=== PATIENT | male | born 1955 | race Caucasian/White ===

== ENCOUNTER 2019-10-19 04:48 | Inpatient (IN) | payer MEDICARE ==
[~2019-10-19] VITALS: Ht 170.1 cm; Wt 90.7 kg
[2019-10-19] MEDS ORDERED: GLIMEPIRIDE4 M1 PO (05:18)
[2019-10-19] MEDS ORDERED: IBU800 M1 PO (05:24)
[2019-10-19] MEDS ORDERED: POTASSIUM CHLO20 ME4 PO (05:28)
[2019-10-19] MEDS ORDERED: DULOXETINE HCL60 MG PO (05:30)
[2019-10-19] MEDS ORDERED: LISINOPRIL10 M1 PO (05:31)
[2019-10-19] MEDS ORDERED: FUROSEMIDE40 MG PO (05:33)
[2019-10-19] MEDS ORDERED: DONEPEZIL HCL10 MG PO (05:34)
[2019-10-19] MEDS ORDERED: NEURONTIN300 MG PO (05:35)
[2019-10-19] MEDS ORDERED: NEXIUM40 MG PO (05:36)
[2019-10-19] MEDS ORDERED: MEMANTINE HCL5 MG PO (05:37)
[2019-10-19] MEDS ORDERED: SINEMET 10-1001 EACH PO (05:39)
[2019-10-19] MEDS ORDERED: ASPIRIN ADULT L81 M2 PO (05:40)
[2019-10-19] MEDS ORDERED: RISPERDAL1 M1 PO (05:42)
[2019-10-19] MEDS ORDERED: MAGNESIUM OXID400 MG PO (05:44)
[2019-10-19] MEDS ORDERED: LORATADINE-D 21 EACH PO (05:45)
--- NOTE | 2019-10-19 07:14 | NUR ---
MANDYYE LEONARD V a 64 year old M admitted via stretcher from the [facility] as a voluntary admission. [place] [id number]. ALLERGIES: OPIOIDS, NUTS. Vital signs are: 97.5-100-18 146/88. The client signed the following forms with stated understanding: Authorization For The Release of Medical Information, Clothing List, Consent to Voluntary Admission and Hospitalization, Consent and Release Forms/Receipt of Rights, Acknowledgement of Advance Directive Information, Behavioral Health Consent Form, and Informed Consent of Medications. Admitted under the services of Dr. TIMOTHY HOOD,[facility]. A search was conducted and hazardous articles were removed. Client was oriented to the unit. ADRIANA ANG
[2019-10-19 07:22] VITALS: BP 146/88
--- NOTE | 2019-10-19 07:54 | NUR ---
Dr. Joshi on floor, notified of new admission. Stated to put under Dr. Bear for medical management
[2019-10-19 08:00] VITALS: BP 146/88
--- NOTE | 2019-10-19 08:15 | NUR ---
Treatment Plan meeting was held via telephone with Dr. aVlencia, RUMA Larson, RN, AT, PERSONNEL INTERVIEWER-S and Orthopedic Physician Assistant. Plan for discharge next week. Will reach out to family today to discuss discharge planning.
[2019-10-19 09:07] VITALS: BP 146/88
--- NOTE | 2019-10-19 12:05 | NUR ---
Dr. Ortega notified of patient being a diabetic, BS checked at 1130 of 203, pt is on a PO diabetic medication, but no insulin, and on a regular diet. Dr. Ortega stated to not change anything at ths time.
--- NOTE | 2019-10-19 14:14 | NUR ---
Shift chart check completed.
--- NOTE | 2019-10-19 14:49 | NUR ---
Lengthy family meeting held via phone with pt's Lula. Per Lula, pt is unable to return home due to safety concerns. Lula also stated that she is pt's DPOAHC. Pt was current with [facility] until [facility] admission. The hospice agency does have a copy of the DPOAHC. Lula explained that pt has a lengthy psych history with previous suicidal ideations. Pt has pill packs for his home meds. Lula stated that she did not realize that pt was without his Risperdal for approximately 2 weeks. Pt began to voice paranoid delusions about and friends. Yesterday, pt woke up and immediately went to the drawer where he keeps a gun. He grabbed the gun and pointed it toward himself and told Lula that he was going to kill himself. Lula then wrestled with pt and was able to get the gun. Lula stated that she is done with pt and that she will no longer be his caregiver. Discussed discharge options. Educated Lula about options. Will request PT/OT to further determine discharge needs. Lula also confirmed that all firearms were removed from the house. Lula was tearful throughout conversation. Empathized and provided support to her.
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
--- NOTE | 2019-10-19 18:21 | NUR ---
Found a paper that missed getting signed with patient during admission. Went back to patient room to remind patient what we had discussed and it just needed signed. Patient refused to sign paper stating "Why would them doctors put three of my meds on hold. And I did not get my morning meds". Informed patient that because he was a new admission, the hospitalist still needed to review his meds. It is way to late to get missed medications and he gets night meds in a couple hours. Patient turned away and refused to answer staff.
[2019-10-19 19:48] VITALS: BP 119/79
--- NOTE | 2019-10-19 21:20 | NUR ---
24 HR chart check completed.
--- NOTE | 2019-10-19 22:00 | NUR ---
P-ISOLATIVE, IRRITABLE I-ENCOURAGE VENTILATION OF FEELINGS, ADMINISTER MEDS, MONITOR SLEEP R-PT HAS REMAINED IN HIS ROOM IN BED SLEEPING. DURING VERBAL INTERVENTION, HE WAS IRRITABLE ABOUT HIS MEDICATIONS. ALERT TO PERSON, IN A HOSPITAL, MONTH & YEAR. DENIES SUICIDAL FEELINGS. DID NOT EAT SNACK. TOOK MEDICATIONS WHOLE & STATED, "IT'S ABOUT TIME". P-CONTINUE TO MONITOR
--- NOTE | 2019-10-20 05:17 | NUR ---
PT HAS SLEPT QUIETLY PAST 1999
[2019-10-20 06:19] LABS: BASO # 0.1 10*3/uL (0.0-0.1); BASO % 1.1 % (0.0-1.0); EOS % 0.6 % (1.0-4.0); HEMATOCRIT 42.2 % (42.0-52.0); LYMPH # 2.4 10*3/uL (1.3-4.4); LYMPH % 36.9 % (27.0-41.0); MEAN CELL VOLUME 95.5 fl (80.0-94.0); MEAN CORPUSCULAR HGB 32.1 pg (27.0-31.0); MEAN CORPUSCULAR HGB CONC 33.6 g/dl (33.0-37.0); MEAN PLATELET VOLUME 10.1 fl (9.6-12.3); MONO # 0.6 10*3/uL (0.1-1.0); MONO % 9.4 % (3.0-9.0); NEUT # 3.3 10*3/uL (2.3-7.9); NEUT % 51.5 % (47.0-73.0); PLATELET COUNT AUTOMATED 223 10*3/uL (130-400); RED BLOOD COUNT 4.42 10*6/uL (4.50-5.90); RED CELL DISTRI WIDTH 12.9 % (0-14.5); WHITE BLOOD COUNT 6.5 10*3/uL (4.8-10.8)
[2019-10-20 06:44] LABS: ALBUMIN 3.3 gm/dl (3.1-4.5); ALKALINE PHOSPHATASE 81 U/L (45-117); BUN 12 mg/dl (7-24); CHLORIDE 107 mmol/L (98-107); CHOLESTEROL 171 mg/dL (<200); CREATININE 0.89 mg/dL (0.70-1.30); HDL CHOLESTEROL 48 mg/dl (40-60); LDL CHOLESTEROL 92 mg/dL (9-159); POTASSIUM 3.6 mmol/L (3.5-5.1); SGOT/AST 38 IU/L (3-35); SGPT/ALT 18 U/L (12-78); SODIUM 142 mmol/L (136-145); TOTAL PROTEIN 6.7 gm/dL (6.4-8.2); TRIGLYCERIDES 157 mg/dl (<150); VLDL CHOLESTEROL 31 mg/dL (6-40)
[2019-10-20 06:50] LABS: THYROID STIM HORMONE (HS) 0.485 uIU/ml (0.358-4.75)
[2019-10-20 07:56] VITALS: BP 111/72
--- NOTE | 2019-10-20 08:00 | NUR ---
Treatment Plan meeting was held via telephone with Dr. Valencia, RN, JOB FOREMAN-S and Fuel Technician. Plan for discharge Next week. Dr. Valencia has ordered Competency Evaluation. Discharge Plans unclear at this time. Pt. lives at home with who reports that patient is unable to return home.
[2019-10-20 08:03] LABS: VITAMIN D, 25-HYDROXY 11.8 ng/mL (30-100)
--- NOTE | 2019-10-20 10:33 | NUR ---
DR. DACOSTA NOTIFIEO OF COMPETENCY EVAL.
--- NOTE | 2019-10-20 14:38 | NUR ---
Spoke with pt's Lula who states that she has been speaking to pt on the phone. She has reconsidered and wants pt to return home as long as [facility] team feels pt is appropriate to do so. Explained to Lula that pt was being tested for competency and educated Lula about this further.
--- NOTE | 2019-10-20 17:00 | NUR ---
CALL LIGHT SOUNDING FROM ANOTHER ROOM, LOOKED OVER IN ROOM. PATIENT OBSERVED LYING ON FLOOR, LAYING ON LEFT SIDE. PATIENT STATED "I HAD TO GO TO THE BATHROOM, PAST OUT BEFORE I KNEW I WAS ON THE FLOOR. PATIENT STATED I HIT MY HEAD. VITALS: T=96.8, 18, P 111, BP 79/66, MANUAL BP 68/50, 92% RA; NEURO EYES REACTED TO LIGHT, STRONG HAND GRASP, ABLE TO MOVE ALL EXTREMITIES. PATIENT ADMITS TO BEING DIZZY. DR. RUSSELL NOTIFIED. NEW ORDERS FOR HEAD CT STAT. RECHECK BP BEFORE GOING TO RADIOLOGY.
--- NOTE | 2019-10-20 17:15 | NUR ---
DR. RUSSELL ON UNIT TO ASSESS PATIENT. BLOOD PRESSURE RECHECK 80/50. MEDICATIONS REVIEW. VERBAL ORDER TO HOLD POTASSIUM, LASIX AND LISINOPRIL. DR. AGUIRRE NOTIFIED. VERBAL ORDER FOR ORTHOSTATIC BP Q SHIFT X 3 DAYS.
--- NOTE | 2019-10-20 19:09 | NUR ---
BP 76/46 MANUALLY BY RN, DR. BETTENCOURT MADE AWARE. STATES TO CONTINUE TO KEEP PT IN GROUP ROOM AND MONITOR FOR S/S OF FAINTNESS AND DIZZINESS. ALSO STATES TO ENCOURAGE MORE FLUID INTAKE. RECOMMENDATIONS COMMUNICATED TO ADMINISTRATIVE SPECIALIST STAFF.
[2019-10-20 20:00] VITALS: BP 82/64
--- NOTE | 2019-10-20 21:26 | NUR ---
24 HR chart check completed.
--- NOTE | 2019-10-20 22:34 | NUR ---
P-ISOLATIVE, IRRITABLE I-ENCOURAGE VENTILATION OF FEELINGS, ADMINISTER MEDS, MONITOR SLEEP R-PT SAT IN THE DINING ROOM QUIETLY. DEPRESSED & IRRITABLE WITH SARCASTIC REMARKS & COMPLAINS ABOUT HIS MEDICATIONS, NOT GETTING ANY FOOD & NOT BEING ABLE TO LAY DOWN DESPITE REORIENTATION. PT DENIES ANY DIZZINESS. STATED, "I FEEL FINE. I JUST WANT TO GO LAY DOWN". B/P 84/64 & PULSE 88. REFUSED ORTHOSTATICS. ALERT TO PERSON, MONTH & YEAR. SHORT TERM MEMORY DEFICITS NOTED. DENIES SUICIDAL FEELINGS. ATE SNACK. TOOK MEDICATIONS WHOLE. FANAPT HELD A NURSING MEASURE DUE TO LOW B/P. PT IS TAKING FLUIDS WELLL & STATED, "IF I DRINK ANY MORE, I'M GONNA SHIT ALL OVER THE PLACE". P-CONTINUE TO MONITOR
--- NOTE | 2019-10-21 04:42 | NUR ---
URINE OBTAINED & SENT TO LAB
[2019-10-21 04:52] LABS: BILIRUBIN NEGATIVE (NEGATIVE); BLOOD NEGATIVE (NEGATIVE); CLARITY CLEAR (CLEAR); COLOR YELLOW (YELLOW); GLUCOSE NEGATIVE (NEGATIVE); KETONE NEGATIVE (NEGATIVE); LEUKO ESTERASE NEGATIVE (NEGATIVE); NITRITE NEGATIVE (NEGATIVE); SPECIFIC GRAVITY 1.015 (1.005-1.030); UROBILINOGEN 0.2 E.U./dl (0.2-1.0)
[2019-10-21 04:53] LABS: FINE GRANULAR CAST 16-20; HYALINE CAST 16-20; WBC 0-2 wbc/hpf (0-5)
--- NOTE | 2019-10-21 05:55 | NUR ---
PT HAS SLEPT PAST 2144 WITH INTERMITTENTLY AWAKENINGS SLEEPING APPROXIMATELY 4-5 HOURS TOTAL.
[2019-10-21 08:00] VITALS: BP 133/60
--- NOTE | 2019-10-21 08:10 | NUR ---
Patient in room resting quietly. Respirations easy and regular. Vital signs stable. No overt distress. Telehealth with Marsha Pineda CNP. Updates provided. DUSTIN ROBERSON
--- NOTE | 2019-10-21 08:15 | NUR ---
Treatment Plan meeting was held via telephone with Dr. Valencia, RUMA Larson, JANETTE, STONE SAWYER-S and Corner Cutter. Plan for discharge next week. Discharge Plan is unclear at this time. Pt. is POA and would like for Pt. to return home.
--- NOTE | 2019-10-21 08:19 | NUR ---
PT NONCOMPLIANT WITH ORTHOSTATIC BP'S AT THIS TIME.
--- NOTE | 2019-10-21 10:49 | NUR ---
AM GROUP PT WAS PRESENT FOR GROUP THERAPY, MOVIE, COLORING, AND LOW STIMULATION; PT SAT QUIETLY AND WATCHED MOVIE.
--- NOTE | 2019-10-21 14:58 | NUR ---
Attempted to engage pt in conversation. Pt would only answer with short responses. It is uncertain if pt could hear this senior grant writer. Pt was making poor eye contact during brief interaction with this STORE RECEIVER-S.
--- NOTE | 2019-10-21 17:57 | NUR ---
SPOKE WITH PT'S VIA TELEPHONE TODAY WHO STATES THAT PATIENT OFTEN HAS DIFFICULTY EXPRESSING HIS NEEDS. PATIENT HAS BEEN MUCH MORE COMMUNICATIVE TODAY, DISCUSSING HIS NEUROPATHY PAIN IN HIS LEGS AND HOW THE IBUPROFEN AND NEURONTIN WORK PRETTY WELL TO MANAGE HIS PAIN. PT STATES HE HAS TRIED OTHER MEDICATIONS SUCH VICODIN WHICH HAS NOT WORKED WELL IN THE PAST. PT EDUCATED ON MEDICATIONS AND ENCOURAGED TO EXPRESS ANY NEEDS TO STAFF.
--- NOTE | 2019-10-21 19:45 | NUR ---
24 HR chart check completed.
[2019-10-21 19:59] VITALS: BP 126/81
--- NOTE | 2019-10-21 20:35 | NUR ---
PT REQUESTED & MEDICATED WITH IBUPROFEN 800 MG PO @ 2029 FOR C/O BILATERAL LEG & FEET PAIN RELATED TO HIS NEUROPATHY
--- NOTE | 2019-10-21 21:04 | NUR ---
P-ISOLATIVE I-ENCOURAGE VENTILATION OF FEELINGS, ADMINISTER MEDS, MONITOR SLEEP R-PT SAT IN THE DINING ROOM QUIETLY & KEPT TO HIMSELF. DEPRESSED MOOD. MORE APPROPRIATE AFFECT WHEN TALKING TO STAFF. STILL HAS UNDERLYING IRRITABLITY. CONTINUES TO STATE THAT HE FEELS FINE. I JUST WANT TO GO LAY DOWN". B/P 126/81 PULSE 90. REFUSED ORTHOSTATICS. ALERT TO PERSON, MONTH & YEAR. DENIES SUICIDAL FEELINGS. ATE SNACK. TOOK MEDICATIONS WHOLE. P-CONTINUE TO MONITOR
--- NOTE | 2019-10-22 04:42 | NUR ---
IBUPROFEN HAS BEEN EFFECTIVE & PT HAS SLEPT PAST 2199
[2019-10-22 07:25] VITALS: BP 120/76
--- NOTE | 2019-10-22 10:13 | NUR ---
AM GROUP PT WAS PRESENT FOR GROUP THERAPY, MOVIE, COLORING, AND LOW STIMULATION.
--- NOTE | 2019-10-22 16:44 | NUR ---
PM GROUP ACTIVITY WITH BEACH BALL COPING SKILLS/ POSITIVE REINFORCEMENT HELD THIS AFTERNOON. PT WAS PRESENT AND INTERACTIVE WITH STAFF AND PEERS
[2019-10-22 20:00] VITALS: BP 141/85
--- NOTE | 2019-10-22 21:44 | NUR ---
Patient alert and oriented x4. Mood is calm but can be irritable at times. Patient isolative to self while in diningroom with other patients. Patient denies any hallucinations. No s/s of any responding to any internal stimuli noted at this time. Patient compliant with HS medications without any difficulty. Attempted to provide 1:1 for emotional support but patient refused. Plan to continue to encourage medication compliance. Also continue to offer emotional support. Will continue to monitor moods/behaviors. Q 15 minute safety checks continued and maintained. See [facility] flowsheet for further documentation.
--- NOTE | 2019-10-23 00:12 | NUR ---
24 HR chart check completed.
--- NOTE | 2019-10-23 05:29 | NUR ---
Patient slept approx. 6 hours throughout shift. Q 15 minute safety checks continued and maintained.
[2019-10-23 07:54] VITALS: BP 129/76
--- NOTE | 2019-10-23 08:20 | NUR ---
Patient in room resting quietly. Respirations easy and regular. Vital signs stable. No overt distress. DIXON MORALES, ON UNIT TO ASSESS PT. UPDATES PROVIDED. DUSTIN ROBERSON RN
--- NOTE | 2019-10-23 18:11 | NUR ---
pt pleasant and cooperative. receptive to medication education, verbalizes understanding. pt made aware of negative right hip x-ray, states "oh that's good", verbalizes some continued discomfort, states his prn Ibuprofen along with his routine gabapentin has been effective.
[2019-10-23 20:00] VITALS: BP 137/89
--- NOTE | 2019-10-23 21:33 | NUR ---
Patient alert and oriented x4. Mood is calm but can be irritable at times. Patient isolative to self while in diningroom with other patients. Patient denies any hallucinations. No s/s of any responding to any internal stimuli noted at this time.No complaints voiced at this time. Patient compliant with HS medications without any difficulty. Attempted to provide 1:1 for emotional support but patient refused. Plan to continue to encourage medication compliance. Also continue to offer emotional support. Will continue to monitor moods/behaviors. Q 15 minute safety checks continued and maintained. See [facility] flowsheet for further documentation.
--- NOTE | 2019-10-24 00:23 | NUR ---
24 HR chart check completed.
--- NOTE | 2019-10-24 05:27 | NUR ---
Patient slept approx. 7 hours throughout shift. Q 15 minute safety checks continued and maintained.
[2019-10-24 07:49] VITALS: BP 152/82
--- NOTE | 2019-10-24 08:00 | NUR ---
Patient eating breakfast in dining room with peers. Respirations easy and regular. Vital signs stable. No overt distress. KAREN SIMPSON on unit to see pt at this time, update given. updated via telemedicine.
--- NOTE | 2019-10-24 08:15 | NUR ---
Treatment plan meeting was held with RUMA Larson, Dr. Valencia via telephone, RN, ABDULKADIR and Pulley Man. Plan for discharge Thursday/Thu. Pt. will return home at discharge.
--- NOTE | 2019-10-24 09:23 | NUR ---
PRN IBUPROFEN 800MG ONE TAB PO GIVEN AT THIS TIME FOR C/O NEUROPATHIC PAIN TO BILATERAL LEGS AND FEET RATED LEVEL 4/10 ON PAIN SCALE. PT ALSO C/O PAIN TO RIGHT HIP, KNEE AND ELBOW STATES PAIN IS A 3/10 "UNLESS I MOVE THE WRONG WAY THEN IT'S A 10". WILL MONITOR FOR EFFECTIVENESS OF MEDICATION.
--- NOTE | 2019-10-24 10:30 | NUR ---
IBUPROFEN EFFECTIVE. PT VOICES NO FURTHER C/O AT THIS TIME.
--- NOTE | 2019-10-24 13:00 | NUR ---
GROUP NOTE - "WHAT MAKES YOU HAPPY AND SATISFIED" PT ACTIVELY PARTICIPATED IN GROUP BY IDENTIFYING POSITIVES IN HIS LIFE WHICH ARE MEANINGFUL TO HIM AND MAKE HIM FEEL HAPPY AND SATISFIED. THESE TOPICS WERE FURTHER DISCUSSED IN GROUP SETTING WITH STAFF AND PEERS.
--- NOTE | 2019-10-24 16:06 | NUR ---
Shift chart check completed.
--- NOTE | 2019-10-24 16:32 | NUR ---
P- PT REPORTS DEPRESSED MOOD RELATED TO CHRONIC HEALTH CONDITIONS I- ORIENTATION, MOOD AND BEHAVIORS ASSESSED. ASSESSED PT FOR SI/HI, INTENT OR PLAN. ASSESSED PT FOR S/S HALLUCINATIONS, PARANOIA AND/OR DELUSIONS. MEDICATIONS ADMINISTERED PER PHYSICIAN'S ORDERS. ASSISTANCE WITH ADL CARE PROVIDED NEEDED. ENCOURAGED PT TO ATTEND AND PARTICIPATE IN ESQUIVEL MILIEU GROUPS AND ACTIVITIES. R- PT IS ALERT AND ORIENTED X4. MEMORY APPEARS TO BE INTACT. RESPS EASY AND EVEN ON ROOM AIR. PT REPORTS MOOD BEING DEPRESSED R/T CHRONIC HEALTH CONDITIONS. AFFECT BLUNTED. SPEECH IS SOFT, COHERENT, ABLE TO MAKE NEEDS KNOWN WITHOUT DIFFICULTY. PT DENIES SI/HI, INTENT OR PLAN. PT DENIES HALLUCINATIONS, NO RESPONSE TO INTERNAL STIMULI NOTED. NO PARANOIA OR DLEUSIONS NOTED. PT IS MEDICATION COMPLIANT WITHOUT DIFFICULTY. INTERACTING APPROPRIATELY WITH STAFF. NO ANGRY OUTBURSTS. PT CONTINUES TO C/O OF PAIN INTERMITTENTLY TO RIGHT HIP, KNEE AND ELBOW. AWARE. NO DISTRESS NOTED. P- PLAN TO CONTINUE CURRENT TX, CONTINUE TO MONITOR MOOD AND BEHAVIORS, PROVIDE APPROPRIATE REORIENTATION, REDIRECTION AND 1:1 NEEDED. CONTINUE TO ENCOURAGE MEDICATION COMPLIANCE WELL GROUP ATTENDANCE AND PARTICIPATION.
--- NOTE | 2019-10-24 19:43 | NUR ---
24 HR chart check completed.
[2019-10-24 19:54] VITALS: BP 100/72
--- NOTE | 2019-10-24 20:50 | NUR ---
PT REQUESTED & MEDICATED WITH IBUPROFEN 800 MG PO @ 2024 FOR C/O BILATERAL LEG & FEET PAIN RELATED TO HIS NEUROPATHY & RIGHT HIP PAIN & RIGHT ELBOW PAIN. RATED PAIN 4/10.
--- NOTE | 2019-10-24 20:53 | NUR ---
P-MILDLY DEPRESSED I-ENCOURAGE VENTILATION OF FEELINGS, ADMINISTER MEDS, MONITOR SLEEP R-PT SAT IN THE DINING ROOM QUIETLY & KEPT TO HIMSELF WHILE WATCHING A MOVIE ON TV. MILDLY DEPRESSED. Alert & ORIENTED X 4. APPROPRIATE AFFECT WHEN TALKING TO STAFF. STATED THAT HE FEELS FINE. DENIES SUICIDAL FEELINGS. ATE SNACK. TOOK MEDICATIONS WHOLE. P-CONTINUE TO MONITOR
--- NOTE | 2019-10-25 04:55 | NUR ---
PT HAS SLEPT PAST 2214
[2019-10-25 07:50] VITALS: BP 109/57
--- NOTE | 2019-10-25 08:20 | NUR ---
Patient eating breakfast in dining room with peers. Respirations easy and regular. Vital signs stable. No overt distress. KAREN SIMPSON & updated on pt progress.
--- NOTE | 2019-10-25 08:30 | NUR ---
Treatment Plan meeting was held via telephone with Dr. Valencia, RUMA Larson RN, DIRECTOR OF INCOME TAX-S and B And B Gang Worker. Plan for discharge today if transportation is available.
[2019-10-25 08:42] VITALS: BP 120/80
--- NOTE | 2019-10-25 10:45 | NUR ---
PATIENT COMPLAINING OF BILATERAL FEET PAIN RATE PAIN 10/10. PRN IBROPHEN 800MG PO GIVEN AT THIS TIME.
--- NOTE | 2019-10-25 10:54 | NUR ---
NOTIFIED OF PLAN FOR DISCHARGE TODAY AT 3PM.
--- NOTE | 2019-10-25 11:30 | NUR ---
to transport with machine operator hop picker time 3:00 p.m. Notified Nurse in the Behavioral Health Unit of machine operator hop picker time. Follow up appointments scheduled with Pt. to follow with Dr. Castillo for Mental Health Follow up 10/26/2019 at 10:15 for telephone appointment post hospital follow up. Primary care follow up with Izaiah Guerra with Kylee Jarvis NP 11/08/2019 2:45 p.m. at Office. Pt. will be required to wear a mask for appointment. Call Placed to [facility] and Spoke with Norah. Pt. was discharged from Hospice but will be reassed at home . Hospice Nurse will call Patient Prior to arrival for in Home Assessment.
[2019-10-25] MEDS ORDERED: BENZTROPINE MESY1 MG PO (13:07)
[2019-10-25] MEDS ORDERED: VITAMIN D3125 MC1 PO (13:07)
[2019-10-25] MEDS ORDERED: DULOXETINE HCL30 MG PO (13:07)
[2019-10-25] MEDS ORDERED: DULOXETINE HCL60 MG PO (13:07)
[2019-10-25] MEDS ORDERED: PALIPERIDONE ER6 MG PO (13:07)
--- NOTE | 2019-10-25 13:27 | NUR ---
ABIOLA Carty/Oumou FROM PT'S DISCHARGE MED LIST PER .
--- NOTE | 2019-10-25 13:40 | NUR ---
MEDICATIONS AND DISCHARGE INSTRUCTIONS REVIEWED WITH PER REQUEST.
--- NOTE | 2019-10-25 13:43 | NUR ---
Notified pt's Lula of pt's discharge today. Discussed follow-up. Lula will transport pt at 15:00.
--- NOTE | 2019-10-25 13:46 | NUR ---
Pt is discharging to home today with his . Follow-up will be with Dr Castillo and with Kylee Jarvis NP at [facility] While at [facility], pt's mood and behaviors improved. Pt denies SI. Pt's reports that pt has improved greatly and she believes that pt is ready to return home. [facility] will resume when pt returns home.
--- NOTE | 2019-10-25 14:07 | NUR ---
DISCHARGE INSTRUCTIONS REVIEWED WITH PT WITH PTS STATED UNDERSTANDING OF ALL. ALL QUESTIONS ANSWERED. HOME MEDS OBTAINED FROM PHARMACY TO BE SENT HOME WITH PT.
--- NOTE | 2019-10-25 15:00 | NUR ---
PT DISCHARGED AT THIS TIME TO HOME WITH VIA PRIVATE VEHICLE. ALL PERSONAL BELONGINGS WERE SENT WITH THE PT. PT LEFT THE UNIT IN STABLE CONDITIION AT 1500.
== END 2019-10-25 15:00 | disposition hospice, home (50) | DRG 885 ==
LOC: 3N 04:48
PROVIDERS: ADMIT Psychiatry & Neurology Psychiatry
DX: F33.2 Major depressive disorder, recurrent severe without psychotic features (principal); F43.10 Post-traumatic stress disorder, unspecified; K21.9 Gastro-esophageal reflux disease without esophagitis; G20 Parkinson's disease; J44.9 Chronic obstructive pulmonary disease, unspecified; I10 Essential (primary) hypertension; E11.69 Type 2 diabetes mellitus with other specified complication; M19.90 Unspecified osteoarthritis, unspecified site; E55.9 Vitamin D deficiency, unspecified; E78.5 Hyperlipidemia, unspecified; E11.40 Type 2 diabetes mellitus with diabetic neuropathy, unspecified; Z79.899 Other long term (current) drug therapy; Z93.3 Colostomy status; Z82.0 Family history of epilepsy and other diseases of the nervous system; Z79.4 Long term (current) use of insulin; Z88.5 Allergy status to narcotic agent; Z91.018 Allergy to other foods; G31.84 Mild cognitive impairment of uncertain or unknown etiology